=== PATIENT | female | born 1980 | race Caucasian/White ===

== ENCOUNTER 2024-04-24 11:49 | Emergency (ER) | payer OTHER ==
[~2024-04-24] VITALS: Ht 165.1 cm; Wt 81.6 kg
[2024-04-24 12:05] VITALS: BP 153/100; PULSE 75; RESP 18; TEMP 98; O2SAT 99
[2024-04-24 13:26] LABS: BASOPHILS # (AUTO) 0.1 K/uL (0.00-0.22); BASOPHILS % (AUTO) 1.4 % (0.0-2.0); EOSINOPHILS # (AUTO) 0.4 K/uL (0-0.4); HEMATOCRIT 27.7 % (36-48); HEMOGLOBIN 8.5 g/dL (12.0-16.0); LYMPHOCYTES # (AUTO) 2.4 K/uL (2.5-16.5); LYMPHOCYTES % (AUTO) 32.4 % (20.5-51.1); MEAN CORPUSCULAR HEMOGLOBIN 17 pg (27-31); MEAN CORPUSCULAR HGB CONC 31 g/dL (33-37); MONOCYTES # (AUTO) 0.7 K/uL (0.8-1.0); MONOCYTES % (AUTO) 9.5 % (1.7-9.3); NEUTROPHILS # (AUTO) 3.8 K/uL (1.8-7.7); NEUTROPHILS % (AUTO) 50.7 % (42.2-75.2); PLATELET COUNT (AUTO) 585 K/uL (140-450); RED BLOOD CELL COUNT(AUTO) 5.03 MIL/uL (4.20-5.40); RED CELL DISTRIBUTION WIDTH 19.5 % (11.6-13.7); WHITE BLOOD COUNT (AUTO) 7.4 K/uL (4.8-10.8)
[2024-04-24 13:48] LABS: ANION GAP 11.1 (8-16); CARBON DIOXIDE 27.9 mmol/L (21-32); CREATININE 0.8 mg/dL (0.6-1.3)
[2024-04-24] MEDS ORDERED: SODI1PKT7 NS (14:22)
[2024-04-24] MEDS ORDERED: FLONAS NS (14:22)
[2024-04-24] MEDS ORDERED: AMOX500C25 PO (14:22)
[2024-04-24] MEDS ORDERED: FEXO1TAB12 PO (14:25)
[2024-04-24 14:32] VITALS: BP 133/70; PULSE 57; RESP 18; TEMP 98; O2SAT 99
== END 2024-04-24 14:32 | disposition home or self-care (01) ==
LOC: MED 11:49
DX: J32.9 Chronic sinusitis, unspecified (principal); R53.1 Weakness; D64.9 Anemia, unspecified; Z98.890 Other specified postprocedural states; Z79.899 Other long term (current) drug therapy; Z88.2 Allergy status to sulfonamides
CPT/HCPCS: 36415; 71045; 80048; 82948; 84484; 85025; 93005; 99285